=== PATIENT | male | born 1925 | race Caucasian/White ===

== ENCOUNTER 2017-06-13 21:33 | Inpatient (IN) | payer MEDICARE, BC ==
[~2017-06-13] VITALS: Ht 177.8 cm; Wt 84.0 kg
[2017-06-13 21:30] VITALS: O2SAT 92
[~2017-06-13 21:33] MED LIST: AMIO200T PO; APIX5TAB PO; ASPI1TAB69 PO; FINA5TAB2 PO; GABA600T PO; HUMALOG SQ; LANTUS2P SQ; LOVA40TA PO; PRIM50TA5 PO; RANE1000 PO; TOPI50TA7 PO
[2017-06-13 21:37] VITALS: BP 166/74; PULSE 99; RESP 24; TEMP 100.1; O2SAT 96
[2017-06-13 21:44] VITALS: RESP 25; O2SAT 98
[2017-06-13] MEDS ORDERED: SODIUM CHLORIDE 0.9% FLUSH 10 ML FLUSH IVF PRN (21:45)
--- NOTE | 2017-06-13 21:46 | PD ---
HPI Chief Complaint: Respiratory Distress Time Seen by Provider: 21:40 Travel History International Travel<30 days: No Contact w/Intl Traveler<30days: No History of Present Illness HPI The patient is an 89 year old male who presents to the [facility] emergency department with a history of shortness of breath that is been present over the last few days. The patient reports that he was diagnosed with bronchitis, however he has not started any antibiotic. The patient became progressively short of breath this afternoon and into the evening. Ambulance services were called and the patient was noted to have room air saturations in the 80s and was tripoding. The patient denied having any chest pain. He reports that he has had a cough productive of yellow to orange sputum. The patient denies having any worsening lower extremity edema, calf pain, or erythema. The patient in route to this facility was placed on CPAP and is saturating 94-96% on arrival. The patient reports feeling improved. The patient denies having any known recent fevers, neck pain, abdominal pain, vomiting, diarrhea, urinary symptoms, or neurologic symptoms. On further evaluation after the patient's arrived at the bedside, she and her were able to provide additional history. The patient reports that he has been having cough and congestion since Wednesday. He was seen by his primary care physician, , and diagnosed with bronchitis. This is managed with a cough suppressant. His reports that he became more congested and short of breath today, thus ambulance services were called. [facility] Past Medical History Narrative Medical The patient's past medical history is significant for diabetes mellitus, history of myocardial infarction with 2 prior stents being placed, history of congestive heart failure, hypertension, history of pacemaker placement, asthma as a child, hyperlipidemia. Asthma: Yes ( A CHILD) Anxiety: No Depression: No Heart Rhythm Problems: No Cancer: No Cardiac Catheterization: Yes Cardiovascular Problems: Yes High Cholesterol: Yes Chest Pain: Yes Congestive Heart Failure: No Diabetes: Yes Endocrine: Yes Gastrointestinal Disorders: No Glaucoma: No Genitourinary: No Headaches: No Hepatitis: No Hiatal Hernia: No Hypertension: Yes Implanted Vascular Access Dvce: No Musculoskeletal: No Neurologic: Yes Psychiatric: No Respiratory: Yes Integumentary: No Migraines: No Seizures: No Thyroid Disease: No Past Surgical History Narrative Surgical The patient's past surgical history is significant for cardiac catheterization with stent placement, pacemaker placement, history of coronary artery bypass grafting in 1993, history of hernia repair. Abdominal Surgery: Yes (HERNIAECTOMY R SIDE) Cardiac Surgery: Yes (CABG 1993; STENT 2012 AND 2001) Coronary Artery Bypass Graft: Yes (1991) Coronary Stent: Yes Other Surgery: Yes Social History Alcohol Use: No Tobacco Use: No Substance Use: No Allergies-Medications (Allergen,Severity, Reaction): Coded Allergies: No Known Allergies (Unverified , 01/07/16) Reported Meds & Prescriptions Reported Meds & Active Scripts Active Reported Ranexa ER 12 HR (Ranolazine) 1,000 Mg Tab 1,000 Mg PO BID Topiramate 50 Mg Tab 50 Mg PO DAILY Lovastatin 40 Mg Tab 40 Mg PO DAILY Primidone 50 Mg Tab 50 Mg PO BID Finasteride 5 Mg Tab 5 Mg PO DAILY Do not crush. Eliquis (Apixaban) 5 Mg Tab 5 Mg PO BID Amiodarone (Amiodarone HCl) 200 Mg Tab 200 Mg PO T,, Humalog Inj (Insulin Human Lispro) 1,000 Unit/10 Ml Vial 1-9 Units SQ ACHS Max dose at bedtime:( )units; sugars< 70,(0)units; sugars 150-199,(1)unit; sugars 200-249,(3)units; sugars 250-299,(5)units; sugars 300-349,(7)units; sugars more than 349,(9)units. Lantus Inj (Insulin Glargine) 1,000 Unit/10 Ml Vial 10 Units SQ HS Review of Systems Except as stated in HPI: all other systems reviewed are Neg General / Constitutional: No: Fever Eyes: No: Visual changes HENT: Positive: Congestion, No: Headaches Cardiovascular: Positive: Dyspnea on exertion, No: Chest Pain or Discomfort Respiratory: Positive: Cough, Shortness of Breath Gastrointestinal: No: Nausea, Vomiting, Diarrhea, Abdominal Pain Genitourinary: No: Dysuria Musculoskeletal: No: Pain Skin: No Rash Neurologic: No: Weakness Psychiatric: No: Depression Endocrine: No: Polydipsia Hematologic/Lymphatic: No: Easy Bruising Physical Exam Narrative General: The patient is a well-developed male, on CPAP on arrival, appears to be more comfortable and reports having improvement in his shortness of breath Head and Neck exam: Head is normocephalic atraumatic. Eyes: EOMI, pupils are equal round and reactive to light. Nose: Midline septum with pink mucous membranes Mouth: Dentition unremarkable. Moist mucus membranes. Posterior oropharynx is not erythematous. No tonsillar hypertrophy. Uvula midline. Airway patent. Neck: No palpable lymphadenopathy. No nuchal rigidity. No thyromegaly. Cardiovascular: Sinus tachycardia in the low 100 without murmurs, gallops, or rubs. No pulse deficit to the extremities on simultaneous auscultation and palpation of his radial artery. Lungs: Scattered rhonchi audible with bilateral anterior expiratory wheezes audible, decreased breath sounds in bilateral bases. The patient has no tripoding or accessory muscle use noted. No paroxysmal abdominal breathing Abdomen: Soft, without tenderness to palpation in all 4 quadrants of the abdomen. No guarding, rebound, or rigidity. Normal bowel sounds are audible. No tenderness on palpation of McBurney's point Extremities: No clubbing or cyanosis. The patient has trace pedal edema bilateral lower extremities. No calf tenderness on palpation. 2+ pulses in all 4 extremities. Back: No spinous process tenderness to palpation. No costovertebral angle tenderness to palpation. Neurologic Exam: Grossly nonfocal. Skin Exam: No rash noted. Intact skin that is warm and dry. Data Data Last Documented VS Vital Signs Date Time Temp Pulse Resp B/P (MAP) Pulse Ox O2 Delivery O2 Flow Rate FiO2 06/14/17 00:08 90 15 98/61 (73) 96 Room Air 06/13/17 21:44 100 06/13/17 21:37 100.1 Orders Orders Complete Blood Count With Diff (06/13/17 21:41) Comprehensive Metabolic Panel (06/13/17 21:41) B-Type Natriuretic Peptide (06/13/17 21:41) Act Partial Throm Time (Ptt) (06/13/17 21:41) Prothrombin Time / Inr (Pt) (06/13/17 21:41) Magnesium (Mg) (06/13/17 21:41) Ckmb (Isoenzyme) Profile (06/13/17 21:41) Troponin I (06/13/17 21:41) Arterial Blood Gas (Abg) (06/13/17 21:41) Urinalysis - C+S If Indicated (06/13/17 21:41) Blood Culture (06/13/17 21:41) Iv Access Insert/Monitor (06/13/17 21:41) Electrocardiogram (06/13/17 21:41) Ecg Monitoring (06/13/17 21:41) Oximetry (06/13/17 21:41) Oxygen Administration (06/13/17 21:41) Chest, Single Ap (06/13/17 21:41) Sodium Chloride 0.9% Flush (Ns Flush) (06/13/17 21:45) Albuterol-Ipratropium Neb (Duoneb Neb) (06/13/17 21:45) Lactic Acid Sepsis Protocol (06/13/17 21:41) Aspirin Chew (Aspirin Chew) (06/13/17 23:30) Nitroglycerin 2% Oint (Nitroglycerin 2% (06/13/17 23:30) Furosemide Inj (Lasix Inj) (06/13/17 23:30) Ceftriaxone Inj (Rocephin Inj) (06/13/17 23:30) Azithromycin Inj (Zithromax Inj) (06/13/17 23:30) Admit Order (Ed Use Only) (06/14/17 00:30) Labs Laboratory Tests Test 06/13/17 21:57 06/13/17 22:45 White Blood Count 11.2 TH/MM3 Red Blood Count 3.93 MIL/MM3 Hemoglobin 12.8 GM/DL Hematocrit 37.6 % Mean Corpuscular Volume 95.5 FL Mean Corpuscular Hemoglobin 32.6 PG Mean Corpuscular Hemoglobin Concent 34.1 % Red Cell Distribution Width 14.1 % Platelet Count 190 TH/MM3 Mean Platelet Volume 8.1 FL Neutrophils (%) (Auto) 88.7 % Lymphocytes (%) (Auto) 4.7 % Monocytes (%) (Auto) 6.0 % Eosinophils (%) (Auto) 0.3 % Basophils (%) (Auto) 0.3 % Neutrophils # (Auto) 9.9 TH/MM3 Lymphocytes # (Auto) 0.5 TH/MM3 Monocytes # (Auto) 0.7 TH/MM3 Eosinophils # (Auto) 0.0 TH/MM3 Basophils # (Auto) 0.0 TH/MM3 CBC Comment DIFF FINAL Differential Comment Prothrombin Time 11.4 SEC Prothromb Time International Ratio 1.1 RATIO Activated Partial Thromboplast Time 29.1 SEC Blood Urea Nitrogen 21 MG/DL Creatinine 0.98 MG/DL Random Glucose 217 MG/DL Total Protein 7.3 GM/DL Albumin 3.4 GM/DL Calcium Level 8.9 MG/DL Magnesium Level 1.6 MG/DL Alkaline Phosphatase 41 U/L Aspartate Amino Transf (AST/SGOT) 24 U/L Alanine Aminotransferase (ALT/SGPT) 26 U/L Total Bilirubin 0.5 MG/DL Sodium Level 136 MEQ/L Potassium Level 4.4 MEQ/L Chloride Level 101 MEQ/L Carbon Dioxide Level 28.6 MEQ/L Anion Gap 6 MEQ/L Estimat Glomerular Filtration Rate 72 ML/MIN Lactic Acid Level 1.6 mmol/L Total Creatine Kinase 78 U/L Troponin I 0.14 NG/ML B-Type Natriuretic Peptide 252 PG/ML Blood Gas Puncture Site RT RADIAL Blood Gas Patient Temperature 98.6 Blood Gas HCO3 24 mmol/L Blood Gas Base Excess 0.3 mmol/L Blood Gas Oxygen Saturation 91 % Arterial Blood pH 7.47 Arterial Blood Partial Pressure CO2 33 mmHg Arterial Blood Partial Pressure O2 62 mmHG Arterial Blood Oxygen Content 15.9 Vol % Arterial Blood Carboxyhemoglobin 1.3 % Arterial Blood Methemoglobin 0.8 % Blood Gas Hemoglobin 12.3 G/DL Oxygen Delivery Device BiPAP Blood Gas Ventilator Setting MDM Medical Decision Making Medical Screen Exam Complete: Yes Emergency Medical Condition: Yes Medical Record Reviewed: Yes Interpretation(s) Last Impressions Chest X-Ray 06/13/172140 Signed Impressions: Service Date/Time: Tuesday, June 13, 2017 21:54 - CONCLUSION: Minimal patchy density at the lung bases representing atelectasis or consolidation. Woody Osborn MD Differential Diagnosis Pneumonia, versus congestive heart failure exacerbation, versus acute coronary syndrome pulmonary embolism, versus reactive airway with bronchitis Narrative Course During the course of the patient's emergency department visit, the patient's history, examination, and differential diagnosis were reviewed with the patient. The patient was placed on a monitor worker with oximetry and frequent blood pressure monitoring. The patient had IV access obtained and blood work sent for analysis. The patient had an EKG done on arrival. The patient's EKG reveals a ventricular paced rhythm, no other acute abnormality is noted. The patient was initially provided a DuoNeb 2. The patient was continued on BiPAP. The patient's laboratory studies were reviewed and remarkable for a white count of 11.2, hemoglobin 12.8, weight was 190 with 88.7 neutrophils, CMP was remarkable for BUN of 21, glucose 217, alk phos 41, troponin I was elevated at 0.14, BNP 252. Lactic acid 1.6. PT PTT within normal limits. The patient was given aspirin 162 mg p.o. Nitroglycerin 1 inch the chest wall. Radiology studies were reviewed and remarkable for a chest x-ray that shows patchy minimal density at the lung bases representing atelectasis or consolidation. The patient's infiltrate could also be related to a CHF exacerbation. The patient was given Lasix 40 mg IV, blood cultures 2 were drawn. The patient was given Rocephin 1 g IV, Zithromax 500 IV. An ABG was done. The patient's ABG reveals a pH of 7.47, PCO2 33, PO2 62 this was on BiPAP. The patient's BiPAP will be weaned as tolerated. The patient's results were discussed with the patient, including the plan of care. I explained that further testing and/ or monitoring is indicated based on the patient's history, examination, and/ or laboratory findings. Therefore, I recommended admission for additional evaluation. The patient expressed understanding and was agreeable with this plan. The patient was admitted to the hospital in guarded condition and sent to a bed under the care of the [facility] service. Physician Communication Physician Communication The patient's case including history, pertinent physical examination findings, and laboratory studies were discussed with Dr. Veloz. It was agreed that the patient would be admitted to the [facility] service. Diagnosis Primary Impression: Pneumonia Qualified Codes: J18.1 - Lobar pneumonia, unspecified organism Additional Impression: Elevated troponin Admitting Information Admitting Physician Requests: Admit Lizzy De Oliveira MD Jun 13, 2017 21:46
[2017-06-13] MEDS: RESP: ALBUTEROL 2.5 MG/IPRATROPIUM 0.5 MG NEB (SCH) INH ×2 (21:54→21:58)
[2017-06-13 22:14] LABS: AUTOMATED NEUTROPHIL # 9.9 TH/MM3 (1.8-7.7); BASOPHIL % 0.3 % (0.0-2.0); EOSINOPHIL % 0.3 % (0.0-4.0); HEMATOCRIT 37.6 % (39.0-51.0); HEMOGLOBIN 12.8 GM/DL (13.0-17.0); LYMPH % 4.7 % (9.0-44.0); LYMPHOCYTE # 0.5 TH/MM3 (1.0-4.8); MEAN CELL VOLUME 95.5 FL (80.0-100.0); MEAN CORPUSCULAR HEMOGLOBIN 32.6 PG (27.0-34.0); MEAN CORPUSCULAR HGB CONC 34.1 % (32.0-36.0); MEAN PLATELET VOLUME 8.1 FL (7.0-11.0); MONOCYTE # 0.7 TH/MM3 (0-0.9); NEUT % 88.7 % (16.0-70.0); PLATELET COUNT 190 TH/MM3 (150-450); RED BLOOD COUNT 3.93 MIL/MM3 (4.50-5.90); RED CELL DISTRIBUTION WIDTH 14.1 % (11.6-17.2); WHITE BLOOD COUNT 11.2 TH/MM3 (4.0-11.0)
[2017-06-13 22:25] LABS: INTERNATIONAL NORMALIZED RATIO 1.1 RATIO; PROTHROMBIN TIME - PATIENT 11.4 SEC (9.8-11.6)
[2017-06-13 22:30] LABS: ALBUMIN 3.4 GM/DL (3.4-5.0); AST (GOT) 24 U/L (15-37); BICARBONATE 28.6 MEQ/L (21.0-32.0); BLOOD UREA NITROGEN 21 MG/DL (7-18); CALCIUM 8.9 MG/DL (8.5-10.1); CHLORIDE 101 MEQ/L (98-107); CREATININE 0.98 MG/DL (0.60-1.30); GLOMERULAR FILTRATION RATE 72 ML/MIN (>89); GLUCOSE,RANDOM 217 MG/DL (74-106); MAGNESIUM 1.6 MG/DL (1.5-2.5); SODIUM (NA) 136 MEQ/L (136-145)
[2017-06-13 22:34] LABS: ALKALINE PHOSPHATASE 41 U/L (45-117); ALT (GPT) 26 U/L (12-78); TOTAL BILIRUBIN ADULT 0.5 MG/DL (0.2-1.0); TOTAL PROTEIN 7.3 GM/DL (6.4-8.2); TROPONIN I 0.14 NG/ML (0.02-0.05)
--- NOTE | 2017-06-13 22:41 | RADRPT ---
EXAM DATE/TIME: 06/13/2017 21:54 [facility] COMPARISON: CHEST SINGLE AP, January 07, 2016, 11:19. INDICATIONS : Short of breath. MEDICAL HISTORY : Hypertension. Diabetes mellitus type II. Myocardial infarction. SURGICAL HISTORY : Pacemaker. CABG. Cardiac stents. ENCOUNTER: Initial ACUITY: 1 day PAIN SCORE: 0/10 LOCATION: Bilateral chest FINDINGS: Patient is status post sternotomy. There is a bilead pacemaker in place. The heart size is normal. Th ere some minimal patchy density seen at the lung bases. CONCLUSION: Minimal patchy density at the lung bases representing atelectasis or consolidation. Woody Osborn MD on June 13, 2017 at 22:37 Board Certified Radiologist. This report was verified electronically.
[2017-06-13] MEDS ORDERED: ASPIRIN 81 MG CHEW TAB CHEW ONE (23:30)
[2017-06-13] MEDS ORDERED: FUROSEMIDE 40 MG/4 ML VIAL IV PUSH ONE (23:30)
[2017-06-13] MEDS ORDERED: NITROGLYCERIN 2% OINT 1 GM PACKET TOPICAL ONE (23:30)
[2017-06-13] MEDS ORDERED: cefTRIAXone INJ 1,000 MG in SODIUM CHLORIDE 0.9% INJ 100 ML IV ONE (23:30)
[2017-06-13] MEDS ORDERED: AZITHROMYCIN INJ 500 MG in SODIUM CHLOR 0.9% 250 ML INJ 250 ML IV ONE (23:30)
[2017-06-14] VITALS (15 sets, daily range): BP systolic 96–116; BP diastolic 52–61; PULSE 71–90; RESP 15–20; TEMP 97.3–97.9; O2SAT 92–99
[2017-06-14] MEDS ORDERED: SENNOSIDES 8.6 MG TAB PO PRN (00:30)
[2017-06-14] MEDS ORDERED: DEXTROSE 50% IN WATER 50 ML VIAL(D50) IV PUSH PRN (00:30)
[2017-06-14] MEDS ORDERED: BISACODYL 10 MG SUPP RECTAL PRN (00:30)
[2017-06-14] MEDS ORDERED: ACETAMINOPHEN/HYDROcodone 325 MG/5 MG TAB PO PRN (00:30)
[2017-06-14] MEDS ORDERED: LACTULOSE SYRUP 20 GM/30 ML CUP PO PRN (00:30)
[2017-06-14] MEDS ORDERED: GLUCAGON 1 MG/ML VIAL OTHER PRN (00:30)
[2017-06-14] MEDS ORDERED: ONDANSETRON HCL 4 MG/2 ML VIAL IVP PRN (00:30)
[2017-06-14] MEDS ORDERED: MORPHINE SULFATE 2 MG/ML SYRINGE IV PUSH PRN (00:30)
[2017-06-14] MEDS ORDERED: RESP: ALBUTEROL 2.5 MG/IPRATROPIUM 0.5 MG NEB (PRN) NEB (00:30)
[2017-06-14] MEDS ORDERED: SODIUM CHLORIDE 0.9% FLUSH 10 ML FLUSH IV FLUSH PRN (00:30)
[2017-06-14] MEDS ORDERED: MAGNESIUM HYDROXIDE SUSP 30 ML CUP PO PRN (00:30)
[2017-06-14] MEDS ORDERED: ACETAMINOPHEN 325 MG TAB PO PRN (00:30)
--- NOTE | 2017-06-14 01:56 | HHI.HP ---
HPI Service [facility] Primary Care Physician Unknown Admission Diagnosis Pneumonia, shortness of breath Diagnoses: (1) PNA (pneumonia) (2) Hypoxia (3) Elevated troponin (4) CHF (congestive heart failure) (5) DM (diabetes mellitus) Travel History International Travel<30 Days: No Contact w/Intl Traveler <30 Da: No Traveled to Known Affected Are: No History of Present Illness This is an 89-year-old male with a PMH of HTN, CAD, CHF (Unknown EF), A. fib on Eliquis, Pacemaker, Hyperlipidemia and DM who was brought to the ER by EMS secondary to SOB. Per SNF records, pt recently diagnosed w/ Bronchitis, given symptomatic treatment, however not on antibiotics. Progressive SOB x3-4 days. Upon EMS arrival, pt noted to by hypoxic w/ O2 sat 80's, significant respiratory distress, ultimately placed on CPAP w/ O2 sat 94-96%. On arrival, pt transitioned to BIPAP w/ improvement. BP 166/74, HR 99, O2 sat 99% on BiPAP , Temperature 100.1. Currently off BIPAP w/ O2 sat 96% on RA. WBC 11.2. Chemistry essentially unremarkable. Troponin 0.14. BNP 252. INR 1.1. CXR with patchy density lung bases representing consolidation or atelectasis. S/p Rocephin/Zithro in ER. Chest pain free. Review of Systems Except as stated in HPI: all other systems reviewed are Neg ROS: 14 point review of systems otherwise negative. Past Family Social History Past Medical History PMH: HTN, CAD, CHF (Unknown EF), Pacemaker, Hyperlipidemia and DM Past Surgical History PAST SURGICAL HISTORY: Hernia Repair, CABG, Cardiac Stent, Pacemaker Allergies: Coded Allergies: No Known Allergies (Unverified , 01/07/16) Family History PAST FAMILY HISTORY: Reviewed. No h/o DM or CAD Social History PAST SOCIAL HISTORY: Negative for alcohol, tobacco or drugs per Physical Exam Vital Signs Vital Signs Date Time Temp Pulse Resp B/P (MAP) Pulse Ox O2 Delivery O2 Flow Rate FiO2 06/14/17 00:08 90 15 98/61 (73) 96 Room Air 4/15/18 21:44 98 25 99 Room Air 06/13/17 21:44 98 BiPAP 100 06/13/17 21:44 25 98 BiPAP 100 06/13/17 21:37 100.1 99 24 166/74 (104) 96 06/13/17 21:30 92 50 Physical Exam PE: GENERAL: Pleasant elderly white male in no acute distress. Off BiPAP, breathing more comfortably. HEENT: PERRLA, EOMI. No scleral icterus or conjunctival pallor. No lid lag or facial droop. CARDIOVASCULAR: Regular rate and rhythm. No obvious murmurs to auscultation. No chest tenderness to palpation. RESPIRATORY: No obvious rhonchi or wheezing. Clear to auscultation. Breath sounds equal bilaterally. GASTROINTESTINAL: Abdomen soft, non-tender, nondistended. BS normal. MUSCULOSKELETAL: Extremities without clubbing, cyanosis, or edema. No obvious deformities. NEUROLOGICAL: Awake, alert and oriented x4. No focal neurologic deficits. Moving both upper and lower extremities spontaneously. Laboratory Laboratory Tests Test 06/13/17 21:57 06/13/17 22:45 White Blood Count 11.2 Red Blood Count 3.93 Hemoglobin 12.8 Hematocrit 37.6 Mean Corpuscular Volume 95.5 Mean Corpuscular Hemoglobin 32.6 Mean Corpuscular Hemoglobin Concent 34.1 Red Cell Distribution Width 14.1 Platelet Count 190 Mean Platelet Volume 8.1 Neutrophils (%) (Auto) 88.7 Lymphocytes (%) (Auto) 4.7 Monocytes (%) (Auto) 6.0 Eosinophils (%) (Auto) 0.3 Basophils (%) (Auto) 0.3 Neutrophils # (Auto) 9.9 Lymphocytes # (Auto) 0.5 Monocytes # (Auto) 0.7 Eosinophils # (Auto) 0.0 Basophils # (Auto) 0.0 CBC Comment DIFF FINAL Differential Comment Prothrombin Time 11.4 Prothromb Time International Ratio 1.1 Activated Partial Thromboplast Time 29.1 Blood Urea Nitrogen 21 Creatinine 0.98 Random Glucose 217 Total Protein 7.3 Albumin 3.4 Calcium Level 8.9 Magnesium Level 1.6 Alkaline Phosphatase 41 Aspartate Amino Transf (AST/SGOT) 24 Alanine Aminotransferase (ALT/SGPT) 26 Total Bilirubin 0.5 Sodium Level 136 Potassium Level 4.4 Chloride Level 101 Carbon Dioxide Level 28.6 Anion Gap 6 Estimat Glomerular Filtration Rate 72 Lactic Acid Level 1.6 Total Creatine Kinase 78 Troponin I 0.14 B-Type Natriuretic Peptide 252 Blood Gas Puncture Site RT RADIAL Blood Gas Patient Temperature 98.6 Blood Gas HCO3 24 Blood Gas Base Excess 0.3 Blood Gas Oxygen Saturation 91 Arterial Blood pH 7.47 Arterial Blood Partial Pressure CO2 33 Arterial Blood Partial Pressure O2 62 Arterial Blood Oxygen Content 15.9 Arterial Blood Carboxyhemoglobin 1.3 Arterial Blood Methemoglobin 0.8 Blood Gas Hemoglobin 12.3 Oxygen Delivery Device BiPAP Blood Gas Ventilator Setting Date/Time Source Procedure Growth Status 06/13/17 21:57 Blood Peripheral Aerobic Blood Culture Pending Received 06/13/17 21:57 Blood Peripheral Anaerobic Blood Culture Pending Received Result Diagram: [id number]/[id number] Caprinihsan VTE Risk Assessment Caprinihsan VTE Risk Assessment: Mod/High Risk (score >= 2) Caprini Risk Assessment Model Point Value = 1 Point Value = 2 Point Value = 3 Point Value = 5 Age 41-60 Minor surgery BMI > 25 kg/m2 Swollen legs Varicose veins or History of unexplained or recurrent spontaneous Oral contraceptives or hormone replacement Sepsis (< 1 month) Serious lung disease, including pneumonia (< 1 month) Abnormal pulmonary function Acute myocardial infarction Congestive heart failure (< 1 month) History of inflammatory bowel disease Medical patient at bed rest Age 61-74 Arthroscopic surgery Major open surgery (> 45 min) Laparoscopic surgery (> 45 min) Malignancy Confined to bed (> 72 hours) Immobilizing plaster cast Central venous access Age >= 75 History of VTE Family history of VTE Factor V Leiden Prothrombin [id number] Lupus anticoagulant Anticardiolipin antibodies Elevated serum homocysteine Heparin-induced thrombocytopenia Other congenital or acquired thrombophilia Stroke (< 1 month) Elective arthroplasty Hip, pelvis, or leg fracture Acute spinal cord injury (< 1 month) Prophylaxis Regimen Total Risk Factor Score Risk Level Prophylaxis Regimen 0-1 Low Early ambulation 2 Moderate Order ONE of the following: *Sequential Compression Device (SCD) *Heparin 5000 units SQ BID 3-4 Higher Order ONE of the following medications: *Heparin 5000 units SQ TID *Enoxaparin/Lovenox 40 mg SQ daily (WT < 150 kg, CrCl > 30 mL/min) *Enoxaparin/Lovenox 30 mg SQ daily (WT < 150 kg, CrCl > 10-29 mL/min) *Enoxaparin/Lovenox 30 mg SQ BID (WT < 150 kg, CrCl > 30 mL/min) AND/OR *Sequential Compression Device (SCD) 5 or more Highest Order ONE of the following medications: *Heparin 5000 units SQ TID (Preferred with Epidurals) *Enoxaparin/Lovenox 40 mg SQ daily (WT < 150 kg, CrCl > 30 mL/min) *Enoxaparin/Lovenox 30 mg SQ daily (WT < 150 kg, CrCl > 10-29 mL/min) *Enoxaparin/Lovenox 30 mg SQ BID (WT < 150 kg, CrCl > 30 mL/min) AND *Sequential Compression Device (SCD) Assessment and Plan Problem List: (1) PNA (pneumonia) ICD Code: J18.9 - Pneumonia, unspecified organism (2) CHF (congestive heart failure) ICD Code: I50.9 - Heart failure, unspecified (3) Hypoxia ICD Code: R09.02 - Hypoxemia (4) Elevated troponin ICD Code: R74.8 - Abnormal levels of other serum enzymes (5) DM (diabetes mellitus) ICD Code: E11.9 - Type 2 diabetes mellitus without complications Assessment and Plan A/P: 1. PNA: CXR w/ patchy density at lung bases representing consolidation or atelectasis, images reviewed by me. S/p Ignacio/Garrett in ER, will continue w / IV Abx, follow up cultures. DuoNeb prn. 2. Hypoxia: O2 sat 80% on EMS arrival, on BIPAP while in ER w/ improvement, O2 sat now 96% on RA, will monitor closely. 3. CHF: Acute on Chronic. Unknown EF. BNP 252, s/p Lasix in ER. Monitor I/O , check Echo to eval for systolic/diastolic function. 4. Elevated Trop: Trop 0.13, no c/o chest pain, possibly demand ischemia from significant hypoxia/tachycardia. Previous Cath 04/24/[address] Waite w/ diffuse small caliber disease, will Consult Cardiology for further recommendations, check serial cardiac enzymes. 5. DM: Sliding scale w/ Accu-Cheks. 6. DVT Prophylaxis: On Eliquis 7. Social work for d/c planning as needed. 8. Case discussed w/ ER physician at length, labs/records/imaging reviewed by me. Physician Certification 2 Midnight Certification Type: Admission for Inpatient Services Order for Inpatient Services The services are ordered in accordance with Medicare regulations or non- Medicare payer requirements, as applicable. In the case of services not specified as inpatient-only, they are appropriately provided as inpatient services in accordance with the 2-midnight benchmark. Estimated LOS (days): 2 days is the estimated time the patient will need to remain in the hospital, assuming treatment plan goals are met and no additional complications. Post-Hospital Plan: Not yet determined Laurita Veloz MD Jun 14, 2017 01:56
[2017-06-14 03:26] LABS: BILIRUBIN, URINE NEG (NEG); BLOOD, URINE NEG (NEG); GLUCOSE,URINE 70 mg/dL (NEG); HYALINE CAST, URINE 2 /lpf (RARE); KETONE, URINE TRACE mg/dL (NEG); MUCUS URINE FEW /lpf (OCC); NITRITE,URINE NEG (NEG); URINE COLOR YELLOW (YELLW/STRAW); URINE LEUKOCYTE ESTERASE NEG (NEG)
[2017-06-14] MEDS: RESP: ALBUTEROL 2.5 MG/IPRATROPIUM 0.5 MG NEB (SCH) NEB ×4 (08:12→19:37)
[2017-06-14] MEDS: INSULIN ASPART SUPPLEMENTAL SCALE SQ SCH ×4 (08:30→21:23)
[2017-06-14] MEDS: TOPIRAMATE 25 MG TAB PO SCH (09:43)
[2017-06-14] MEDS: BUDESONIDE-FORMOTEROL 160/4.5 MCG INHALER INH SCH ×2 (09:43→21:30)
[2017-06-14] MEDS: PRIMIDONE 50 MG TAB PO SCH ×2 (09:43→21:22)
[2017-06-14] MEDS: RANOLAZINE 500 MG EXTENDED RELEASE TAB PO SCH ×2 (09:43→21:22)
[2017-06-14] MEDS: SODIUM CHLORIDE 0.9% FLUSH 10 ML FLUSH IV FLUSH SCH ×2 (09:44→21:23)
[2017-06-14] MEDS: DOCUSATE SODIUM 50 MG/SENNA 8.6 MG TAB PO SCH ×2 (09:44→21:22)
[2017-06-14] MEDS: PRAVASTATIN SOD 40 MG TAB PO SCH (09:44)
[2017-06-14] MEDS: APIXABAN 5 MG TABLET PO SCH ×2 (09:44→21:22)
[2017-06-14] MEDS: FINASTERIDE 5 MG TAB PO SCH (09:44)
[2017-06-14] MEDS: FUROSEMIDE 40 MG/4 ML VIAL IV PUSH SCH ×2 (09:45→17:35)
--- NOTE | 2017-06-14 09:50 | EKG ---
Date Performed: 06/13/2017 Time Performed: 21:39:37 PTAGE: 89 years EKG: ELECTRONIC VENTRICULAR PACEMAKER ABNORMAL RHYTHM ECG WARNING: DATA QUALITY MAY AFFECT INTER PRETATION PREVIOUS TRACING 01/07/16 Compared to the prior study, pacer spikes are now seen. DOCTOR: Rosalio Velásquez Interpretating Date/Time 06/14/2017 09:48:36
--- NOTE | 2017-06-14 15:53 | HHI.PR ---
Subjective Remarks 89-year-old male who presented to the ER following hypoxic episode at home. Overnight he had an elevation in his troponins, but denies chest pain. Objective Vitals Vital Signs Date Time Temp Pulse Resp B/P (MAP) Pulse Ox O2 Delivery O2 Flow Rate FiO2 06/14/17 11:36 97.9 75 18 106/55 (72) 95 06/14/17 09:00 06/14/17 08:15 99 Nasal Cannula 2.00 06/14/17 08:12 73 18 97/61 (73) 97 Nasal Cannula 2.00 06/14/17 06:46 71 16 116/56 (76) 96 Room Air 06/14/17 04:02 80 20 100/52 (68) 96 Room Air 06/14/17 00:08 90 15 98/61 (73) 96 Room Air 06/13/17 21:44 98 25 99 Room Air 06/13/17 21:44 98 BiPAP 100 06/13/17 21:44 25 98 BiPAP 100 06/13/17 21:37 100.1 99 24 166/74 (104) 96 06/13/17 21:30 92 50 I/O 06/13/17 06/13/17 06/13/17 06/14/17 06/14/17 06/14/17 07:00 15:00 23:00 07:00 15:00 23:00 Output Total 220 ml Balance -220 ml Output Urine Total 220 ml # Voids 1 Result Diagram: 06/13/17215606/13/172156 Objective Remarks GENERAL: Well-nourished elderly man SKIN: Warm and dry. HEAD: Normocephalic. EYES: No scleral icterus. No injection or drainage. NECK: Supple, trachea midline. No JVD or lymphadenopathy. CARDIOVASCULAR: Regular rate and rhythm, 2/6 murmur, gallops, or rubs. RESPIRATORY: Crackles greater in the right base than left, coughing ( nonproductive). No accessory muscle use. GASTROINTESTINAL: Abdomen soft, non-tender, nondistended. EXTREMITIES: No cyanosis, or edema. NEUROLOGICAL: Awake, alert, and oriented x 3. Non-focal. A/P Problem List: (1) PNA (pneumonia) ICD Code: J18.9 - Pneumonia, unspecified organism (2) CHF (congestive heart failure) ICD Code: I50.9 - Heart failure, unspecified (3) Hypoxia ICD Code: R09.02 - Hypoxemia (4) Elevated troponin ICD Code: R74.8 - Abnormal levels of other serum enzymes (5) DM (diabetes mellitus) ICD Code: E11.9 - Type 2 diabetes mellitus without complications Assessment and Plan Pneumonia with hypoxemia O2 sat 80% on EMS arrival, on BIPAP while in ER, now comfortable on room air in the 90s Chest x-ray shows patchy density at lung bases representing consolidation or atelectasis Continue Levaquin, follow cultures DuoNeb as needed Troponin elevation Troponin of 0.13 on admission increased to 2.27 overnight Patient is chest pain-free Heart catheterization on 04/24/[address] Siobhan Hernandez showed small caliber disease Dr. Siobhan Hernandez was consulted to make recommendations for medical management Congestive heart failure BNP 252 on admission, Lasix given in the ER Echocardiogram pending for systolic and diastolic function evaluation Type 2 diabetes Accu-Cheks with sliding scale insulin Diabetic diet DVT prophylaxis Willie Arias MD Jun 14, 2017 15:53
[2017-06-14] MEDS ORDERED: POTASSIUM CHLORIDE 20 MEQ CONTROLLED RELEASE TAB PO ONE (18:15)
[2017-06-14] MEDS: FUROSEMIDE 20 MG/2 ML VIAL IV PUSH SCH (18:31)
--- NOTE | 2017-06-14 18:31 | MB ---
cc: Abimbola Waite MD, David DATE: 06/14/2017 REASON FOR CONSULTATION: Elevated troponin and shortness of breath. HISTORY OF PRESENT ILLNESS: Mr. Roberson is a pleasant 89-year-old gentleman with history of coronary artery disease, status post coronary artery bypass graft surgery, 2-vessel bypass, in 1993. PCI and stenting of the RCA in 2012. History of hyperlipidemia and moderate borderline severe aortic stenosis. History of low-normal left ventricular systolic function. He comes in with a week history of progressive shortness of breath and cough with productive yellowish sputum. No fever. He had a low-grade temperature here in the hospital. The day of admission, he felt very weak and slipped off his chair and fell, and because of the persistent cough and increasing shortness of breath, he was transferred to the hospital. He was found to be hypoxic with an O2 saturation around 80% according to the notes. Denies chest pain. Denies palpitations, dizziness or syncope. He says he fell because he felt very weak, not because he was dizzy or lost consciousness. Denies orthopnea, PND or leg swellings; however, in the past few days, he has not been sleeping well because of the cough. PAST MEDICAL AND SURGICAL HISTORY: Includes as mentioned above. 1. Paroxysmal atrial fibrillation/sick sinus syndrome, status permanent pacemaker placement. 2. Right inguinal herniorrhaphy. This was in 194. 3. Right knee surgery in 2009. 4. Dual chamber permanent pacemaker placement in 2013. SOCIAL HISTORY: Never a smoker. Denies ETOH abuse or recreational drug abuse. He is and lives with his . ALLERGIES: NO KNOWN DRUG ALLERGIES. FAMILY HISTORY: Positive for cancer, hypertension and coronary artery disease. Negative for diabetes. MEDICATIONS AT HOME: Includes the following amiodarone 100 mg p.o. on Wednesday, Wednesday and Wednesday, Ecotrin 81 mg p.o. daily, Eliquis 5 mg p.o. b.i.d., finasteride 5 mg p.o. b.i.d., Lantus insulin 18 units q.p.m., lovastatin 40 mg p.o. at bedtime, metformin 1000 mg p.o. b.i.d., primidone 50 mg p.o. b.i.d., Ranexa 1000 mg p.o. b.i.d., Requip 10 mg p.o. b.i.d., topiramate 50 mg p.o. daily. REVIEW OF SYSTEMS: A 12-point system review was unremarkable, except as mentioned in the history of present illness. PHYSICAL EXAMINATION: GENERAL: An 89-year-old gentleman lying in a chair/recliner in no apparent distress, alert and oriented x 3, answers questions appropriately. VITAL SIGNS: Shows blood pressure 110/60 mmHg, pulse of 80 beats per minute and regular, respiration 14 per minute, T max of 100.1. HEENT: Head is normocephalic. Pupils equal and reactive. Throat is within normal limits. NECK: Supple. There is transmitted systolic murmur to the carotids, more on the left, faint bruit on the right. No jugular venous distention noted. No thyromegaly. CARDIOVASCULAR: S1, S2 are muffled with an S4 gallop and III/ systolic ejection murmur across the precordium and in the right second intercostal space. LUNGS: Crepitations noted at the bases bilaterally and more on the right lung field half the way up. ABDOMEN: Lax, nontender. Normoactive bowel sounds. No organomegaly or masses felt. EXTREMITIES: No clubbing, cyanosis. There is trace ankle edema bilaterally, which is not new. Pulses 2+ bilaterally. Dorsalis pedis 1+ bilaterally. NEUROLOGIC: Grossly intact with no focal deficit. RECTAL: Deferred. LABORATORY AND DIAGNOSTIC DATA: EKG shows pacing rhythm with adequate capturing. White count of 11.2, hemoglobin 12.8 and a platelet count of 190. BUN of 21, creatinine 0.98, magnesium 1.6. BNP of 252. Troponin I 0.14, then 2.27, and then down to 2.12. LFTs are within normal limits. Coags are normal. Chest x-ray shows bilateral lower lobe atelectasis/consolidation. ASSESSMENT AND RECOMMENDATIONS: 1. Coronary artery disease, status post coronary artery bypass graft and percutaneous coronary intervention to right coronary artery, as well as mild troponin elevation. He denies chest pain. Electrocardiogram is not diagnostic of ischemia (pacing rhythm) and is against invasive workup and was against also further assessment of the aortic valve and treatment. He could have had demand ischemia from the hypoxia on top of aortic stenosis and at this point, would manage medically, especially per his wishes. He is to continue on the Eliquis 5 mg p.o. b.i.d. He is to continue on the Ranexa and continue low-dose aspirin with the Eliquis, which he was on. If his pressure allows, may add a low-dose beta leslie, but his pressure is on the low side at the present time and will just continue on the low-dose amiodarone, which is maintaining him in sinus. 2. Sick sinus syndrome, paroxysmal atrial fibrillation. Currently remains in sinus rhythm. Continue Eliquis for anticoagulation. 3. Hyperlipidemia, on Lovastatin. 4. Increasing shortness of breath with pneumonia and possibly a mild degree of acute on chronic diastolic heart failure. We will diurese gently over the next 24-48 hours. An echocardiogram has been ordered already and will follow up on the results. 5. Regarding his pneumonia and antibiotics, would continue per the medical team recommendations. Thank you for the consultation and we will follow with you. MD MARLYN Matson/MARLIN , 05:47 PM , 06:30 PM
[2017-06-14] MEDS ORDERED: MAGNESIUM SULFATE INJ 2 GM in SODIUM CHLORIDE 0.9% INJ 50 ML IV ONE (19:00)
[2017-06-14] MEDS: POTASSIUM CHLORIDE 20 MEQ CONTROLLED RELEASE TAB PO SCH (21:22)
[2017-06-14] MEDS: INSULIN DETEMIR 100 UNITS/ML VIAL SQ SCH (21:23)
[2017-06-14] MEDS ORDERED: LEVOFLOXACIN 750 MG PREMIX INJ 150 ML IV SCH (23:00)
[2017-06-15] VITALS (28 sets, daily range): BP systolic 93–120; BP diastolic 50–58; PULSE 74–92; RESP 16–18; TEMP 97.4–98.3; O2SAT 95–97
[2017-06-15] MEDS: RESP: ALBUTEROL 2.5 MG/IPRATROPIUM 0.5 MG NEB (SCH) NEB ×4 (07:35→21:14)
[2017-06-15] MEDS: INSULIN ASPART SUPPLEMENTAL SCALE SQ SCH ×4 (08:06→22:08)
[2017-06-15] MEDS: FUROSEMIDE 20 MG/2 ML VIAL IV PUSH SCH ×2 (08:09→17:33)
[2017-06-15] MEDS: PRIMIDONE 50 MG TAB PO SCH ×2 (08:10→20:47)
[2017-06-15] MEDS: POTASSIUM CHLORIDE 20 MEQ CONTROLLED RELEASE TAB PO SCH ×2 (08:10→20:47)
[2017-06-15] MEDS: RANOLAZINE 500 MG EXTENDED RELEASE TAB PO SCH ×2 (08:10→20:47)
[2017-06-15] MEDS: AMIODARONE 200 MG TAB PO SCH (08:11)
[2017-06-15] MEDS: TOPIRAMATE 25 MG TAB PO SCH (08:11)
[2017-06-15] MEDS: PRAVASTATIN SOD 40 MG TAB PO SCH (08:11)
[2017-06-15] MEDS: FINASTERIDE 5 MG TAB PO SCH (08:12)
[2017-06-15] MEDS: SODIUM CHLORIDE 0.9% FLUSH 10 ML FLUSH IV FLUSH SCH ×2 (08:13→20:52)
[2017-06-15] MEDS: DOCUSATE SODIUM 50 MG/SENNA 8.6 MG TAB PO SCH ×2 (08:13→20:47)
[2017-06-15] MEDS: APIXABAN 5 MG TABLET PO SCH ×2 (08:13→20:47)
[2017-06-15] MEDS: BUDESONIDE-FORMOTEROL 160/4.5 MCG INHALER INH SCH ×2 (08:14→20:52)
--- NOTE | 2017-06-15 09:50 | HHI.PR ---
Subjective Remarks Follow-up pneumonia and heart failure. Improving cough. States he has orthopnea feels better when he is sitting up. Discussed with nursing Objective Vitals Vital Signs Date Time Temp Pulse Resp B/P (MAP) Pulse Ox O2 Delivery O2 Flow Rate FiO2 06/15/17 07:39 96 21 06/15/17 06:33 75 06/15/17 05:00 77 06/15/17 04:00 74 06/15/17 03:30 97.4 82 16 120/58 (78) 96 06/15/17 03:00 74 06/15/17 02:00 74 06/15/17 01:00 82 06/15/17 00:00 76 06/14/17 23:15 97.3 80 16 99/57 (71) 92 06/14/17 23:00 77 06/14/17 22:00 84 06/14/17 21:00 84 06/14/17 20:45 97.6 83 18 96/52 (67) 93 06/14/17 20:00 82 06/14/17 19:38 97 06/14/17 19:00 78 06/14/17 16:01 97.8 80 18 110/56 (74) 97 06/14/17 11:36 97.9 75 18 106/55 (72) 95 I/O 06/14/17 06/14/17 06/14/17 06/15/17 06/15/17 06/15/17 07:00 15:00 23:00 07:00 15:00 23:00 Intake Total 600 ml 240 ml Output Total 220 ml 850 ml Balance -220 ml -250 ml 240 ml Intake Oral 600 ml 240 ml Output Urine Total 220 ml 850 ml # Voids 1 3 Result Diagram: 06/13/17215606/13/172156 Imaging Last Impressions Chest X-Ray 06/13/172140 Signed Impressions: Service Date/Time: Tuesday, June 13, 2017 21:54 - CONCLUSION: Minimal patchy density at the lung bases representing atelectasis or consolidation. Woody Osborn MD Objective Remarks GENERAL: Well-nourished elderly man SKIN: Warm and dry. HEAD: Normocephalic. EYES: No scleral icterus. No injection or drainage. NECK: Supple, trachea midline. No JVD or lymphadenopathy. CARDIOVASCULAR: Regular rate and rhythm, 2/6 murmur, gallops, or rubs. RESPIRATORY: Crackles greater in the right base than left, coughing ( nonproductive). No accessory muscle use. GASTROINTESTINAL: Abdomen soft, non-tender, nondistended. EXTREMITIES: No cyanosis, or edema. NEUROLOGICAL: Awake, alert, and oriented x 3. Non-focal. Procedures none A/P Problem List: (1) PNA (pneumonia) ICD Code: J18.9 - Pneumonia, unspecified organism (2) CHF (congestive heart failure) ICD Code: I50.9 - Heart failure, unspecified (3) Hypoxia ICD Code: R09.02 - Hypoxemia (4) Elevated troponin ICD Code: R74.8 - Abnormal levels of other serum enzymes (5) DM (diabetes mellitus) ICD Code: E11.9 - Type 2 diabetes mellitus without complications Assessment and Plan Pneumonia with hypoxemia O2 sat 80% on EMS arrival, on BIPAP while in ER, now comfortable on room air in the 90s Chest x-ray shows patchy density at lung bases representing consolidation or atelectasis Continue Levaquin, follow cultures negative to date DuoNeb as needed Clinically improving but worsening leukocytosis. Repeat CBC in the morning Troponin elevation likely demand ischemia Troponin of 0.13 on admission increased to 2.27 overnight Patient is chest pain-free Heart catheterization on 04/24/[address] Siobhan Hernandez showed small caliber disease Dr. Siobhan Hernandez was consulted to make recommendations for medical management. Continue aspirin and restart beta-leslie if BP stable Acute on chronic diastolic heart failure hx (pt prefers medical mgt) BNP 252 on admission, Lasix given in the ER will continue. CHF medication, I/O and monitor weight Echocardiogram pending for systolic and diastolic function evaluation. Cardiology wants to diurese patient for 24-48hrs Type 2 diabetes Accu-Cheks with sliding scale insulin Diabetic diet DVT prophylaxis Eliquis Discharge Planning Possible discharge in the morning with home care PT and visiting nurse Rosendo Li MD Jun 15, 2017 09:50
--- NOTE | 2017-06-15 09:52 | HHI.FF ---
Face to Face Verification Diagnosis: (1) PNA (pneumonia) (2) Elevated troponin (3) DM (diabetes mellitus) (4) Hypoxia (5) CHF (congestive heart failure) Physical Therapy Order: Evaluate and Treat, Improve ambulation, Strength and gait training Home Health Nursing Order: Medical education CHF education Oxygen administration education Medication education-adverse effect Nursing assessment with vital signs I have seen patient Lexa RobersonJr on 06/15/17. My clinical findings support the need for the requested home health care services because: Patient has SOB I certify that my clinical findings support that this patient is homebound because: Poor cardiac reserve Rosendo Li MD Jun 15, 2017 09:52
[2017-06-15] MEDS ORDERED: OXYGENDME NAS.CANULA (09:53)
[2017-06-15] MEDS ORDERED: WALKER WHEELS/F1 MIS (09:54)
[2017-06-15] MEDS: ASPIRIN EC 81 MG TABEC PO SCH (10:11)
[2017-06-15] MEDS: BENZONATATE 100 MG CAP PO PRN (10:11)
[2017-06-15 10:57] LABS: AUTOMATED NEUTROPHIL # 12.7 TH/MM3 (1.8-7.7); BASOPHIL % 0.2 % (0.0-2.0); EOSINOPHIL # 0.1 TH/MM3 (0-0.4); EOSINOPHIL % 0.8 % (0.0-4.0); HEMATOCRIT 36.5 % (39.0-51.0); HEMOGLOBIN 12.5 GM/DL (13.0-17.0); LYMPH % 9.9 % (9.0-44.0); LYMPHOCYTE # 1.5 TH/MM3 (1.0-4.8); MEAN CELL VOLUME 95.7 FL (80.0-100.0); MEAN CORPUSCULAR HEMOGLOBIN 32.8 PG (27.0-34.0); MEAN CORPUSCULAR HGB CONC 34.2 % (32.0-36.0); MEAN PLATELET VOLUME 8.3 FL (7.0-11.0); MONO % 6.9 % (0.0-8.0); MONOCYTE # 1.1 TH/MM3 (0-0.9); NEUT % 82.2 % (16.0-70.0); PLATELET COUNT 227 TH/MM3 (150-450); RED BLOOD COUNT 3.82 MIL/MM3 (4.50-5.90); RED CELL DISTRIBUTION WIDTH 14.2 % (11.6-17.2); WHITE BLOOD COUNT 15.4 TH/MM3 (4.0-11.0)
[2017-06-15 11:16] LABS: ALBUMIN 3.5 GM/DL (3.4-5.0); AST (GOT) 23 U/L (15-37); BLOOD UREA NITROGEN 23 MG/DL (7-18); CALCIUM 9.4 MG/DL (8.5-10.1); CHLORIDE 98 MEQ/L (98-107); GLOMERULAR FILTRATION RATE 52 ML/MIN (>89); GLUCOSE,RANDOM 226 MG/DL (74-106); MAGNESIUM 1.8 MG/DL (1.5-2.5); SODIUM (NA) 134 MEQ/L (136-145)
[2017-06-15 11:26] LABS: ALKALINE PHOSPHATASE 46 U/L (45-117); ALT (GPT) 22 U/L (12-78); FREE T4 1.38 NG/DL (0.76-1.46); PHOSPHORUS 2.1 MG/DL (2.5-4.9); TOTAL BILIRUBIN ADULT 0.6 MG/DL (0.2-1.0); TOTAL PROTEIN 8.2 GM/DL (6.4-8.2)
[2017-06-15] MEDS: guaiFENesin E.R. 600 MG TAB PO SCH ×2 (12:00→20:47)
[2017-06-15] MEDS: LEVOFLOXACIN 500 MG TAB PO SCH (17:31)
[2017-06-15] MEDS: POTASSIUM PHOSPHATE MONOBASIC 500 MG TAB PO SCH ×2 (17:35→20:48)
--- NOTE | 2017-06-15 18:20 | ECHRPT ---
Indication: HEART FAILURE CONCLUSIONS Normal left ventricular size. Mild concentric left ventricular hypertrophy. Normal LV systolic function (EF 55%). The left atrial size is mildly dilated. The right atrial size is mildly dilated. Aortic valve sclerosis with mild stenosis. Mild mitral valve regurgitation. There is mild tricuspid valve regurgitation. The estimated pulmonary arterial pressure is 45 mmHg. BP: 120 / 58 HR: 82 Rhythm: Sinus MEASUREMENTS (Male / Female) Normal Values Technical Quality:Fair 2D ECHO LV Diastolic Diameter PLAX 4.4 cm 4.2 - 5.9 / 3.9 - 5.3 cm LV Systolic Diameter PLAX 3.2 cm IVS Diastolic Thickness 1.2 cm 0.6 - 1.0 / 0.6 - 0.9 cm LVPW Diastolic Thickness 1.2 cm 0.6 - 1.0 / 0.6 - 0.9 cm LV Relative Wall Thickness 0.5 RV Internal Dim ED PLAX 2.8 cm LVOT Diameter 2.1 cm Aortic Root Diameter 3.4 cm LA Systolic Diameter LX 4.0 cm 3.0 - 4.0 / 2.7 - 3.8 cm DOPPLER AV Peak Velocity 249.5 cm/s AV Peak Gradient 24.9 mmHg AV Mean Gradient 13.5 mmHg AV Velocity Time Integral 50.0 cm LVOT Peak Velocity 49.6 cm/s LVOT Peak Gradient 1.0 mmHg LVOT Velocity Time Integral 9.8 cm AV Area Cont Eq vti 0.7 cm AV Area Cont Eq pk 0.7 cm Mitral E Point Velocity 72.6 cm/s Mitral A Point Velocity 73.1 cm/s Mitral E to A Ratio 1.0 LV E' Lateral Velocity 10.5 cm/s Mitral E to LV E' Lateral Ratio 6.9 LV E' Septal Velocity 4.0 cm/s Mitral E to LV E' Septal Ratio 18.1 TR Peak Velocity 296.0 cm/s TR Peak Gradient 35.0 mmHg Right Atrial Pressure 10.0 mmHg Pulmonary Artery Systolic Pressu 45.0 mmHg Right Ventricular Systolic Press 45.0 mmHg PV Peak Velocity 88.7 cm/s PV Peak Gradient 3.1 mmHg FINDINGS LEFT VENTRICLE Normal left ventricular size. Mild concentric left ventricular hypertrophy. The left ventricular systolic function is normal with an estimated ejection fraction of 55%. RIGHT VENTRICLE Normal right ventricular size and systolic function. LEFT ATRIUM The left atrial size is mildly dilated. RIGHT ATRIUM The right atrial size is mildly dilated. ATRIAL SEPTUM The interatrial septum not well visualized. AORTA The aortic root and proximal ascending aorta are not well visualized. MITRAL VALVE Mild mitral valve regurgitation. AORTIC VALVE Trileaflet aortic valve. TRICUSPID VALVE There is mild tricuspid valve regurgitation. The estimated pulmonary arterial pressure is 45 mmHg. PULMONARY VALVE The pulmonary valve is not well visualized. VESSELS The inferior vena cava was not well visualized. PERICARDIUM No pericardial effusion. Misael Del Toro MD, FACC (Electronically Signed) Final Date:15 June 2017 18:19
[2017-06-15] MEDS: INSULIN DETEMIR 100 UNITS/ML VIAL SQ SCH (20:48)
[2017-06-16] VITALS (16 sets, daily range): BP systolic 99–119; BP diastolic 54–59; PULSE 70–81; RESP 18; TEMP 97.1–97.9; O2SAT 92–100
[2017-06-16 05:15] LABS: AUTOMATED NEUTROPHIL # 7.3 TH/MM3 (1.8-7.7); BASOPHIL # 0.1 TH/MM3 (0-0.2); BASOPHIL % 0.5 % (0.0-2.0); EOSINOPHIL # 0.1 TH/MM3 (0-0.4); EOSINOPHIL % 1.2 % (0.0-4.0); HEMATOCRIT 30.3 % (39.0-51.0); HEMOGLOBIN 10.7 GM/DL (13.0-17.0); LYMPH % 14.9 % (9.0-44.0); LYMPHOCYTE # 1.4 TH/MM3 (1.0-4.8); MEAN CORPUSCULAR HEMOGLOBIN 33.1 PG (27.0-34.0); MEAN CORPUSCULAR HGB CONC 35.2 % (32.0-36.0); MEAN PLATELET VOLUME 8.1 FL (7.0-11.0); MONO % 7.7 % (0.0-8.0); MONOCYTE # 0.7 TH/MM3 (0-0.9); NEUT % 75.7 % (16.0-70.0); PLATELET COUNT 217 TH/MM3 (150-450); RED BLOOD COUNT 3.22 MIL/MM3 (4.50-5.90); RED CELL DISTRIBUTION WIDTH 13.6 % (11.6-17.2); WHITE BLOOD COUNT 9.7 TH/MM3 (4.0-11.0)
[2017-06-16 05:34] LABS: BICARBONATE 27.4 MEQ/L (21.0-32.0); CALCIUM 9.1 MG/DL (8.5-10.1); CREATININE 1.06 MG/DL (0.60-1.30); PHOSPHORUS 2.3 MG/DL (2.5-4.9)
[2017-06-16] MEDS: RESP: ALBUTEROL 2.5 MG/IPRATROPIUM 0.5 MG NEB (SCH) NEB ×4 (08:20→21:07)
[2017-06-16] MEDS: POTASSIUM CHLORIDE 20 MEQ CONTROLLED RELEASE TAB PO SCH (09:47)
[2017-06-16] MEDS: ASPIRIN EC 81 MG TABEC PO SCH (09:47)
[2017-06-16] MEDS: LEVOFLOXACIN 500 MG TAB PO SCH (09:47)
[2017-06-16] MEDS: APIXABAN 5 MG TABLET PO SCH ×2 (09:47→21:31)
[2017-06-16] MEDS: DOCUSATE SODIUM 50 MG/SENNA 8.6 MG TAB PO SCH ×2 (09:47→21:31)
[2017-06-16] MEDS: guaiFENesin E.R. 600 MG TAB PO SCH ×2 (09:48→21:31)
[2017-06-16] MEDS: PRIMIDONE 50 MG TAB PO SCH ×2 (09:48→21:31)
[2017-06-16] MEDS: RANOLAZINE 500 MG EXTENDED RELEASE TAB PO SCH ×2 (09:48→21:31)
[2017-06-16] MEDS: PRAVASTATIN SOD 40 MG TAB PO SCH (09:48)
[2017-06-16] MEDS: TOPIRAMATE 25 MG TAB PO SCH (09:48)
[2017-06-16] MEDS: FINASTERIDE 5 MG TAB PO SCH (09:48)
[2017-06-16] MEDS: FUROSEMIDE 40 MG TAB PO SCH (09:48)
[2017-06-16] MEDS: BUDESONIDE-FORMOTEROL 160/4.5 MCG INHALER INH SCH ×2 (09:49→21:00)
[2017-06-16] MEDS: INSULIN ASPART SUPPLEMENTAL SCALE SQ SCH ×4 (09:49→21:57)
[2017-06-16] MEDS: SODIUM CHLORIDE 0.9% FLUSH 10 ML FLUSH IV FLUSH SCH ×2 (09:50→21:30)
[2017-06-16] MEDS: AMIODARONE 200 MG TAB PO SCH (09:51)
--- NOTE | 2017-06-16 19:35 | HHI.PR ---
Subjective Remarks Diuresis for 24-48 hours from the 16th, recommended by cardiology. Patient finished his diuresis tonight. Plan for discharge tomorrow morning. Objective Vital Signs Date Time Temp Pulse Resp B/P (MAP) Pulse Ox O2 Delivery O2 Flow Rate FiO2 06/16/17 17:58 97.9 76 18 107/54 (71) 06/16/17 13:34 97.4 76 18 118/59 (78) 06/16/17 09:32 97.1 78 18 117/55 (75) 95 06/16/17 08:21 92 21 06/16/17 06:08 72 06/16/17 05:20 73 06/16/17 04:00 72 06/16/17 03:00 70 06/16/17 03:00 97.8 79 99/55 (70) 100 06/16/17 02:00 74 06/16/17 01:00 74 06/16/17 00:00 74 06/15/17 23:00 97.8 78 94/52 (66) 97 06/15/17 23:00 78 06/15/17 22:00 86 06/15/17 21:16 97 21 06/15/17 21:00 80 06/15/17 20:00 80 I/O 06/15/17 06/15/17 06/15/17 06/16/17 06/16/17 06/16/17 06:59 14:59 22:59 06:59 14:59 22:59 Intake Total 240 ml 1000 ml 240 ml 480 ml Output Total 850 ml Balance 240 ml 150 ml 240 ml 480 ml Intake Oral 240 ml 1000 ml 240 ml 480 ml Output Urine Total 850 ml # Voids 3 2 2 # Bowel Movements 0 Result Diagram: 06/16/17 04206/16/17 042 Objective Remarks GENERAL: NAD, A&Ox3 HEAD: Normocephalic. NECK: Supple, trachea midline. No lymphadenopathy. EYES: No scleral icterus. No injection or drainage. CARDIOVASCULAR: Regular rate and rhythm without murmurs, gallops, or rubs. RESPIRATORY: Breath sounds equal bilaterally. No accessory muscle use. GASTROINTESTINAL: Abdomen soft, non-tender, nondistended. MUSCULOSKELETAL: No cyanosis, or edema. SKIN: Warm and dry. NEURO: No focal neurological deficitis. A/P Problem List: (1) PNA (pneumonia) ICD Code: J18.9 - Pneumonia, unspecified organism (2) Elevated troponin ICD Code: R74.8 - Abnormal levels of other serum enzymes (3) Hypoxia ICD Code: R09.02 - Hypoxemia (4) CHF (congestive heart failure) ICD Code: I50.9 - Heart failure, unspecified Assessment and Plan 89-year-old male admitted secondary to hypoxia related to pneumonia and exacerbation of congestive heart failure with evidence for demand ischemia. Pneumonia with hypoxemia Hypoxia resolved Continue Levaquin Follow for any respiratory distress Troponin elevation likely demand ischemia Chest pain-free Continue aspirin Acute on chronic diastolic heart failure hx (pt prefers medical mgt) Finishing diuresis today Medical management Improving Type 2 diabetes Follow blood sugars Insulin sliding scale Diabetic diet DVT prophylaxis Eliquis Discharge Planning Plan for discharge in the morning if stable overnight Bruce Wells MD Jun 16, 2017 19:35
[2017-06-16] MEDS ORDERED: LACTTAB8 PO (19:38)
[2017-06-16] MEDS ORDERED: LEVA500T33 PO (19:38)
[2017-06-16] MEDS ORDERED: ECASA81 PO (19:38)
[2017-06-16] MEDS: INSULIN DETEMIR 100 UNITS/ML VIAL SQ SCH (21:32)
[2017-06-17] VITALS (13 sets, daily range): BP systolic 114–140; BP diastolic 56–66; PULSE 67–83; RESP 18; TEMP 97.8–98.4; O2SAT 93–96
[2017-06-17] MEDS: BENZONATATE 100 MG CAP PO PRN (02:56)
[2017-06-17] MEDS: RESP: ALBUTEROL 2.5 MG/IPRATROPIUM 0.5 MG NEB (SCH) NEB (08:28)
[2017-06-17] MEDS: DOCUSATE SODIUM 50 MG/SENNA 8.6 MG TAB PO SCH (08:43)
[2017-06-17] MEDS: guaiFENesin E.R. 600 MG TAB PO SCH (08:43)
[2017-06-17] MEDS: RANOLAZINE 500 MG EXTENDED RELEASE TAB PO SCH (08:43)
[2017-06-17] MEDS: PRIMIDONE 50 MG TAB PO SCH (08:43)
[2017-06-17] MEDS: INSULIN ASPART SUPPLEMENTAL SCALE SQ SCH (08:43)
[2017-06-17] MEDS: LEVOFLOXACIN 500 MG TAB PO SCH (08:43)
[2017-06-17] MEDS: FINASTERIDE 5 MG TAB PO SCH (08:43)
[2017-06-17] MEDS: TOPIRAMATE 25 MG TAB PO SCH (08:43)
[2017-06-17] MEDS: APIXABAN 5 MG TABLET PO SCH (08:44)
[2017-06-17] MEDS: FUROSEMIDE 40 MG TAB PO SCH (08:44)
[2017-06-17] MEDS: ASPIRIN EC 81 MG TABEC PO SCH (08:44)
[2017-06-17] MEDS: POTASSIUM CHLORIDE 20 MEQ CONTROLLED RELEASE TAB PO SCH (08:44)
[2017-06-17] MEDS: PRAVASTATIN SOD 40 MG TAB PO SCH (08:44)
[2017-06-17] MEDS: SODIUM CHLORIDE 0.9% FLUSH 10 ML FLUSH IV FLUSH SCH (08:44)
[2017-06-17] MEDS: BUDESONIDE-FORMOTEROL 160/4.5 MCG INHALER INH SCH (08:45)
[2017-06-17] MEDS: AMIODARONE 200 MG TAB PO SCH (08:49)
--- NOTE | 2017-06-17 10:31 | HHI.DS ---
Discharge Summary Admission Date Jun 14, 2017 at 00:33 Discharge Date: Jun 17, 2017 Admitting Diagnosis Pneumonia, shortness of breath (1) PNA (pneumonia) ICD Code: J18.9 - Pneumonia, unspecified organism Diagnosis: Principal (2) CHF (congestive heart failure) ICD Code: I50.9 - Heart failure, unspecified Diagnosis: Principal (3) Hypoxia ICD Code: R09.02 - Hypoxemia Diagnosis: Principal (4) Elevated troponin ICD Code: R74.8 - Abnormal levels of other serum enzymes Diagnosis: Principal (5) DM (diabetes mellitus) ICD Code: E11.9 - Type 2 diabetes mellitus without complications Diagnosis: Principal Procedures none Brief History - From Admission This is an 89-year-old male with a PMH of HTN, CAD, CHF (Unknown EF), A. fib on Eliquis, Pacemaker, Hyperlipidemia and DM who was brought to the ER by EMS secondary to SOB. Per SNF records, pt recently diagnosed w/ Bronchitis, given symptomatic treatment, however not on antibiotics. Progressive SOB x3-4 days. Upon EMS arrival, pt noted to by hypoxic w/ O2 sat 80's, significant respiratory distress, ultimately placed on CPAP w/ O2 sat 94-96%. On arrival, pt transitioned to BIPAP w/ improvement. BP 166/74, HR 99, O2 sat 99% on BiPAP , Temperature 100.1. Currently off BIPAP w/ O2 sat 96% on RA. WBC 11.2. Chemistry essentially unremarkable. Troponin 0.14. BNP 252. INR 1.1. CXR with patchy density lung bases representing consolidation or atelectasis. S/p Rocephin/Zithro in ER. Chest pain free. CBC/BMP: 06/16/17 0421 06/16/17 0421 Significant Findings Laboratory Tests Test 06/14/17 11:20 06/15/17 10:39 06/16/17 04:21 Troponin I 2.12 NG/ML (0.02-0.05) White Blood Count 15.4 TH/MM3 (4.0-11.0) Red Blood Count 3.82 MIL/MM3 (4.50-5.90) 3.22 MIL/MM3 (4.50-5.90) Hemoglobin 12.5 GM/DL (13.0-17.0) 10.7 GM/DL (13.0-17.0) Hematocrit 36.5 % (39.0-51.0) 30.3 % (39.0-51.0) Neutrophils (%) (Auto) 82.2 % (16.0-70.0) 75.7 % (16.0-70.0) Neutrophils # (Auto) 12.7 TH/MM3 (1.8-7.7) Monocytes # (Auto) 1.1 TH/MM3 (0-0.9) Blood Urea Nitrogen 23 MG/DL (7-18) 23 MG/DL (7-18) Random Glucose 226 MG/DL (74-106) 153 MG/DL (74-106) Phosphorus Level 2.1 MG/DL (2.5-4.9) 2.3 MG/DL (2.5-4.9) Sodium Level 134 MEQ/L (136-145) Estimat Glomerular Filtration Rate 52 ML/MIN (>89) 66 ML/MIN (>89) PE at Discharge GENERAL: Well-nourished elderly man SKIN: Warm and dry. HEAD: Normocephalic. EYES: No scleral icterus. No injection or drainage. NECK: Supple, trachea midline. No JVD or lymphadenopathy. CARDIOVASCULAR: Regular rate and rhythm, 2/6 murmur, gallops, or rubs. RESPIRATORY: Crackles greater in the right base than left, coughing ( nonproductive). No accessory muscle use. GASTROINTESTINAL: Abdomen soft, non-tender, nondistended. EXTREMITIES: No cyanosis, or edema. NEUROLOGICAL: Awake, alert, and oriented x 3. Non-focal. Hospital Course Mr. Roberson is an 89 year old male. He was admitted with a CHF Exacerbation ( diastolic) related to pneumonia. With respiratory support, antibiotics, and diuresis he has gradually improved over the past 3 days. He has weaned to room air and is demonstrating stability with breathing and fluid balance at this point. Medically stable and clear for discharge home today. Pt Condition on Discharge: Stable Discharge Disposition: Discharge Home Discharge Time: <= 30 minutes Discharge Instructions DIET: Follow Instructions for: As Tolerated, No Restrictions, Diabetic Diet Activities you can perform: Regular-No Restrictions Follow up Referrals: PCP Follow-up - 2 Weeks New Medications: Lactobacillus Acidophilus (Lactobacillus Acidophilus) 1 Billion Cell Tab 1 TAB PO TIDAC for Nutritional Supplement, #30 TAB 0 Refills Oxygen (O2) (Oxygen (O2)) Device LITER GUILLE.CANULA CONTINUOUS for Prevent Hypoxemia, #2 Oxygen Concentrator Portable Gaseous 2 L/min via Nasal Canula Continuous For 99 months Walker with Front Wheels (Walker with Front Wheels) 1 Mis Mis EA .XX DIRECTED, #[address] (Aspirin DR) 81 Mg Tabdr 81 MG PO DAILY for Blood Clot Prevention, #30 TAB Levofloxacin (Levaquin) 500 Mg Tablet 500 MG PO DAILY for Infection, #5 TAB Continued Medications: Amiodarone (Amiodarone) 200 Mg Tab 200 MG PO t,w,th for Regulate Heart Beat, #30 TAB 0 Refills Apixaban (Eliquis) 5 Mg Tab 5 MG PO BID for Blood Clot Prevention, #60 TAB 0 Refills Finasteride (Finasteride) 5 Mg Tab 5 MG PO DAILY for Manage Prostate Problems, #30 TAB 0 Refills Do not crush. Insulin Glargine Inj (Lantus Inj) 1,000 Unit/10 Ml Vial 10 UNITS SQ HS for Blood Sugar Management, VIAL 0 Refills Insulin Lispro (Human) Inj (Humalog Inj) 1,000 Unit/10 Ml Vial 1-9 UNITS SQ ACHS for Blood Sugar Management, #1 VIAL 0 Refills Max dose at bedtime:( )units; sugars< 70,(0)units; sugars 150-199,(1)unit; sugars 200-249,(3)units; sugars 250-299,(5)units; sugars 300-349,(7)units; sugars more than 349,(9)units. Lovastatin (Lovastatin) 40 Mg Tab 40 MG PO DAILY for Cholesterol Management, #30 TAB 0 Refills Primidone (Primidone) 50 Mg Tab 50 MG PO BID for Control Seizures, #60 TAB 0 Refills Ranolazine ER 12 HR (Ranexa ER 12 HR) 1,000 Mg Tab 1000 MG PO BID for Chest Pain, #60 TAB 0 Refills Topiramate (Topiramate) 50 Mg Tab 50 MG PO DAILY for Control Seizures, #60 TAB 0 Refills Bruce Wells MD Jun 17, 2017 10:31
== END 2017-06-17 09:45 | disposition home or self-care (01) | DRG 193 ==
LOC: NEPC 21:33 → NEDA 06-14 00:33 → NEDH 06-14 04:36 → HCPC 06-14 08:40
PROVIDERS: ADMIT Hospitalist; ATTEND Hospitalist
PROC: 5A09357 Assistance with Respiratory Ventilation, Less than 24 Consecutive Hours, Continuous Positive Airway Pressure (ICD-10-PCS; principal; 2017-06-13)
DX: J18.1 Lobar pneumonia, unspecified organism (principal); I50.33 Acute on chronic diastolic (congestive) heart failure; I49.5 Sick sinus syndrome; I24.8 Other forms of acute ischemic heart disease; J98.11 Atelectasis; I11.0 Hypertensive heart disease with heart failure; I48.0 Paroxysmal atrial fibrillation; E11.9 Type 2 diabetes mellitus without complications; I35.0 Nonrheumatic aortic (valve) stenosis; Z95.1 Presence of aortocoronary bypass graft; R74.8 Abnormal levels of other serum enzymes; E78.5 Hyperlipidemia, unspecified; I25.2 Old myocardial infarction; Z95.5 Presence of coronary angioplasty implant and graft; Z95.0 Presence of cardiac pacemaker; R09.02 Hypoxemia; Z79.01 Long term (current) use of anticoagulants; Z79.82 Long term (current) use of aspirin; Z79.4 Long term (current) use of insulin; I25.10 Atherosclerotic heart disease of native coronary artery without angina pectoris; Z82.49 Family history of ischemic heart disease and other diseases of the circulatory system
CPT/HCPCS: 36600; 71045; 80048; 80053; 81001; 82550; 82805; 82948; 83605; 83735; 83880; 84100; 84439; 84443; 84484; 85025; 85610; 85730; 87040; 93005; 93306; 94002; 94618; 94640; 94664; 96365; 96375; 99285; J0456; J0696; J1815; J1940; J1956; J3475; J7050